=== PATIENT | female | born 1980 | race Caucasian/White ===

== ENCOUNTER 2019-12-07 19:49 | Emergency (ER) | payer OTHER, SELFPAY ==
--- NOTE | 2019-12-07 19:54 | ED.SKABFB ---
HPI - Skin/Abscess/Foreign Bdy General Chief complaint: Skin/Abscess/Foreign Body Stated complaint: Open Sores on face Time Seen by Provider: 12/07/19 19:53 Source: patient and RN notes reviewed Mode of arrival: ambulatory Limitations: no limitations History of Present Illness HPI narrative: 39-year-old female presents with concern for open sores. Reports history of MRSA infections. Reports she is an IV drug user and homeless. Reports complicated past medical history including history of sepsis, hepatitis C, hypertension, heart disease. Reports she is out of many of her medications including her albuterol. complaint: rash Related Data Home Medications Medication Instructions Recorded Confirmed clonidine 12/07/19 clonidine HCl 0.2 mg PO DAILY 12/07/19 12/07/19 omeprazole 20 mg PO DAILY 12/07/19 12/07/19 Allergies Allergy/AdvReac Type Severity Reaction Status Date / Time rifaximin Allergy Mild Unknown Verified 12/07/19 19:52 codeine Allergy Unknown Unknown Verified 12/07/19 19:52 metoclopramide Allergy Unknown Anaphylactic Verified 12/07/19 19:52 Shock Sulfa (Sulfonamide Allergy Unknown Unknown Verified 12/07/19 19:52 Antibiotics) sulfamethizole Allergy Unknown Unknown Verified 12/07/19 19:52 trimethoprim Allergy Unknown Unknown Verified 12/07/19 19:52 CODEINE PHOS Allergy Unknown hives Uncoded 12/07/19 19:52 ZIPRASIDONE HCL Allergy Unknown tongue Uncoded 12/07/19 19:52 swelling shortness of breath ZIPRASIDONE MESYLATE Allergy Unknown tongue Uncoded 12/07/19 19:52 swelling shortness of breath Review of Systems Review of Systems: Narrative: CONSTITUTIONAL: Denies malaise, chills, sweats, or fever ENT: Denies oral lesions CARDIOVASCULAR: Denies chest pain, palpitations, or edema. RESPIRATORY: Denies cough or dyspnea. SKIN: Reports generalized sores in various stages of healing on her abdomen, legs, arms, face All systems reviewed & are unremarkable except as noted in HPI and below PMFSH Family History Family History (Updated 06/17/15 @ 08:31 by DOCTOR UNKNOWN) Father Family history of kidney disease Family history of renal failure Mother Acute myocardial infarction Other Diabetes mellitus Family history of cardiovascular disease Hypertension Social History Social History Smoking status: Current every day smoker Alcohol intake: never Gender identity (if verbalized by the patient): Female Comments At time of signature, agree with nursing past medical, surgical, social and family history. There is no relevant family history pertinent to the presenting complaint Exam Narrative: Exam Narrative: GENERAL: Nontoxic-appearing, poor hygiene, and in no acute distress. HEAD: Normocephalic EYES: PERRLA, conjunctivae clear ENT: Mucous membranes moist. NECK: Supple. CHEST: No respiratory distress. Clear to auscultation. No bony deformities, no asymmetry. Speaks in full sentences. HEART: Regular rate and rhythm. No murmur heard. Normal peripheral pulses. ABDOMEN: normal active bowel sound SKIN: Warm, dry. Multiple scabs in various stages of healing noted to face, arms, torso. No fluctuation noted in any areas, no drainage visible NEURO: Alert and oriented x3. PSYCH: Normal mood and affect Course Course Emergency Course: Patient is aware of diagnosis, understands and agrees to treatment plan. Anticipatory guidance given. Patient agrees to follow-up as directed and is aware of reasons to seek care at the emergency department. Portions of this record may have been created with voice recognition software Vital Signs Vital signs: Reviewed. MDM - Skin/Abscess/Foreign Bdy MDM Narrative Medical decision making narrative: Does not appear at this time to be erythema multiforme, bullous, SJS, TEN; no evidence at this time to suggest RMSF, endocarditis or Lyme disease; patient looks well, nontoxic and is tolerating oral intake; no neurologic signs or s
[2019-12-07 19:56] VITALS: BP 179/109; PULSE 112; RESP 16; TEMP 36.7; O2SAT 100
--- NOTE | 2019-12-07 20:06 | PC.NURSE ---
Pt. presented to [facility] with C/O multiple sores in various stages of healing all about abdomen, face, arms and both legs. Patient admits to be an IV drug user and is homeless. All sores are in various stages of healing, no sign of open oozing any site.
== END 2019-12-07 20:12 | disposition home or self-care (01) ==
PROVIDERS: Emergency Provider Nurse Practitioner
DX: L02.03 Carbuncle of face (principal); L02.434 Carbuncle of left upper limb; L02.433 Carbuncle of right upper limb; L02.239 Carbuncle of trunk, unspecified; Z76.0 Encounter for issue of repeat prescription; F17.200 Nicotine dependence, unspecified, uncomplicated; Z86.19 Personal history of other infectious and parasitic diseases; Z86.14 Personal history of Methicillin resistant Staphylococcus aureus infection
CPT/HCPCS: 99213; G0463

== ENCOUNTER 2020-04-02 19:08 | Emergency (ER) | payer OTHER, SELFPAY ==
[2020-04-02 19:12] VITALS: BP 150/98; PULSE 95; RESP 16; TEMP 37.2; O2SAT 100
--- NOTE | 2020-04-02 19:24 | ED.FEMALEGU ---
HPI - Female Genitourinary General Chief complaint: Urogenital-Female Stated complaint: yeast infection Time Seen by Provider: 04/02/20 19:24 Source: patient and RN notes reviewed History of Present Illness HPI Narrative: Patient is a 39-year-old female who presents the urgent care with complaints of a yeast infection. Patient states that she is chronically on several antibiotics intermittently due to abscesses and lesions of the skin. Patient states that most recently she was on 3 different antibiotics back to back, finishing with clindamycin approximately 1 week ago. Patient states her symptoms have been occurring for several weeks. States that she is typically given Diflucan when put on antibiotics but she has not had it recently. Patient has chronic yeast infections and states that the symptoms are very similar . Patient is also requesting for antibiotic ointment for her face . Patient states that she is homeless and appears to be under the influence of illicit drugs. Patient denies of any pain with urination, frequency, urgency. Denies of any known fevers or abdominal pain. No other acute complaints. Patient aware of the plan of care. Related Data Allergies Allergy/AdvReac Type Severity Reaction Status Date / Time rifaximin Allergy Mild Unknown Verified 04/02/20 19:21 codeine Allergy Unknown Hives Verified 04/02/20 19:21 metoclopramide Allergy Unknown Anaphylactic Verified 04/02/20 19:21 Shock Sulfa (Sulfonamide Allergy Unknown Unknown Verified 04/02/20 19:21 Antibiotics) sulfamethizole Allergy Unknown Unknown Verified 04/02/20 19:21 trimethoprim Allergy Unknown Unknown Verified 04/02/20 19:21 CODEINE PHOS Allergy Unknown hives Uncoded 12/07/19 19:52 ZIPRASIDONE HCL Allergy Unknown tongue Uncoded 12/07/19 19:52 swelling shortness of breath ZIPRASIDONE MESYLATE Allergy Unknown tongue Uncoded 12/07/19 19:52 swelling shortness of breath Review of Systems Review of Systems: Narrative: CONSTITUTIONAL: Denies fever, chills, or sweats. EYES: Denies visual changes, redness, or discharge. ENT: Denies rhinorrhea, congestion, sore throat, or otalgia. CARDIOVASCULAR: Denies chest pain, palpitations, or edema. RESPIRATORY: Denies cough or dyspnea. GASTROINTESTINAL: Denies abdominal pain, nausea, vomiting, or diarrhea. GENITOURINARY: Reports of thick white cottage cheese vaginal discharge SKIN: Reports of facial sores MUSCULOSKELETAL: Denies back pain, joint pain, or myalgia. NEUROLOGIC: Denies headache, numbness, or weakness. All other systems reviewed are negative, except as documented in HPI. [facility] Family History Family History (Updated 06/17/15 @ 08:31 by DOCTOR UNKNOWN) Father Family history of kidney disease Family history of renal failure Mother Acute myocardial infarction Other Diabetes mellitus Family history of cardiovascular disease Hypertension Social History Social History Smoking status: Current every day smoker Alcohol intake: never Gender identity (if verbalized by the patient): Female Comments At the time of my signature, I reviewed and agree with the nursing past medical, surgical, social, and family history. There is no relevant family history pertinent to the patient complaint. Exam Narrative: Exam Narrative: GENERAL: This is a well-nourished, well-developed patient, in no apparent distress. HEAD: normocephalic, atraumatic. EYES: PERRL. Sclera clear/white. Vision is grossly intact. EARS: External ears normal NOSE: External nose normal with no obvious nasal discharge, nares without redness, no rhinorrhea. THROAT: Mucous membranes moist NECK: Neck supple SKIN: Multiple open lesions to the face, mostly surrounding the mouth : Patient refused vaginal exam NEURO: awake, alert, and oriented to person, place and time. There were no obvious focal neurologic abnormalities. EXTREMITIES: No clubbing, cyanosis, or edema Course Vital Signs Vital
== END 2020-04-02 19:40 | disposition home or self-care (01) ==
PROVIDERS: Emergency Provider Nurse Practitioner Family
DX: B37.3 Candidiasis of vulva and vagina (principal); L01.00 Impetigo, unspecified; I10 Essential (primary) hypertension; J44.9 Chronic obstructive pulmonary disease, unspecified; K21.9 Gastro-esophageal reflux disease without esophagitis; Z86.19 Personal history of other infectious and parasitic diseases; Z86.14 Personal history of Methicillin resistant Staphylococcus aureus infection
CPT/HCPCS: 99213; G0463

== ENCOUNTER 2020-04-26 16:28 | Emergency (ER) | payer OTHER, SELFPAY ==
--- NOTE | 2020-04-26 16:30 | ED.GENADULT ---
HPI - General Adult General Chief complaint: Dental/Oral Stated complaint: sores on face/neck/tooth abscess Time Seen by Provider: 04/26/20 16:49 Source: patient Mode of arrival: ambulatory Limitations: no limitations History of Present Illness HPI narrative: 39-year-old female patient presents to the [facility] with complaints of what she thinks might be a dental abscess to the right upper gum. Patient also complaining about a wound to the face on the right cheek. Patient states it is starting to get swelling today. Denies any fever, body aches or chills. Related Data Home Medications Medication Instructions Recorded Confirmed EpinephrineSnap-V 04/26/20 Allergies Allergy/AdvReac Type Severity Reaction Status Date / Time rifaximin Allergy Mild Unknown Verified 04/26/20 16:42 codeine Allergy Unknown Hives Verified 04/26/20 16:42 metoclopramide Allergy Unknown Anaphylactic Verified 04/26/20 16:42 Shock Sulfa (Sulfonamide Allergy Unknown Unknown Verified 04/26/20 16:42 Antibiotics) sulfamethizole Allergy Unknown Unknown Verified 04/26/20 16:42 trimethoprim Allergy Unknown Unknown Verified 04/26/20 16:42 CODEINE PHOS Allergy Unknown hives Uncoded 04/26/20 16:42 ZIPRASIDONE HCL Allergy Unknown tongue Uncoded 04/26/20 16:42 swelling shortness of breath ZIPRASIDONE MESYLATE Allergy Unknown tongue Uncoded 04/26/20 16:42 swelling shortness of breath Review of Systems Review of Systems: Narrative: CONSTITUTIONAL: Denies fever, chills, or sweats. EYES: Denies visual changes, redness, or discharge. ENT: Denies rhinorrhea, congestion, sore throat, or otalgia. Positive right upper dental pain CARDIOVASCULAR: Denies chest pain, palpitations, or edema. RESPIRATORY: Denies cough or dyspnea. GASTROINTESTINAL: Denies abdominal pain, nausea, vomiting, or diarrhea. GENITOURINARY: Denies dysuria or hematuria. SKIN: Denies rash or itching. Positive wound to right cheek MUSCULOSKELETAL: Denies back pain, joint pain, or myalgia. NEUROLOGIC: Denies headache, numbness, or weakness. PSYCHIATRIC: Denies anxiety or depression. [facility] Past Medical History Medical History (Updated 04/26/20 @ 17:30 by DANIELA Kohli) Anxiety Depression Diverticulitis GERD (gastroesophageal reflux disease) Goiter Hepatitis C Hypertension Hypothyroidism MRSA (methicillin resistant staph aureus) culture positive Rectal polyp Substance abuse LSD, cocaine, marijuana, heroin addict Surgical History Surgical History (Updated 04/26/20 @ 16:56 by DANIELA Kohli) History of hysterectomy Family History Family History Father Family history of kidney disease Family history of renal failure Mother Acute myocardial infarction Other Diabetes mellitus Family history of cardiovascular disease Hypertension Social History Social History Smoking status: Current every day smoker Alcohol intake: never Gender identity (if verbalized by the patient): Female Comments At the time of my signature I agree with nursing past medical history, surgical, social, and family history. There is no relevant family history pertinent to the presenting complaint. Exam Narrative: Exam Narrative: GENERAL: Well-appearing, well-nourished, and in no acute distress. HEAD: Normocephalic, atraumatic. EYES: PERRLA and EOMI. ENT: Nares clear, no rhinorrhea or epistaxis. Mucous membranes moist. No obvious abscesses or erythema or infected teeth noted on exam of the oral cavity. NECK: Supple. No lymphadenopathy CHEST: Clear to auscultation. No respiratory distress. HEART: Regular rate and rhythm. No murmur heard. Normal peripheral pulses. ABDOMEN: Soft, nontender, nondistended, normal active bowel sounds. EXTREMITIES: Normal range of motion. No edema. SKIN: Warm, dry, no rash. Patient does have an abscess not
[2020-04-26 16:37] VITALS: BP 160/107; PULSE 82; RESP 16; TEMP 36.8; O2SAT 100
--- NOTE | 2020-04-26 17:13 | PC.NURSE ---
1702 LET APPLIED TO RT. CHEEK PER SPAR FINISHER.
--- NOTE | 2020-04-26 17:31 | PC.NURSE ---
ATTEMPT TO DRAIN ABCESS ON FACE PER SURGICAL SUPERVISOR. WOUND CULTURE OBTAINED. ANTIBIOTIC OINTMENT AND BANDADE APPLIED PER. Atif ZHAO NP.
== END 2020-04-26 17:38 | disposition home or self-care (01) ==
PROVIDERS: Emergency Provider Nurse Practitioner Family
DX: L02.01 Cutaneous abscess of face (principal); F17.200 Nicotine dependence, unspecified, uncomplicated; K21.9 Gastro-esophageal reflux disease without esophagitis; Z86.19 Personal history of other infectious and parasitic diseases; I10 Essential (primary) hypertension; Z86.14 Personal history of Methicillin resistant Staphylococcus aureus infection; E03.9 Hypothyroidism, unspecified
CPT/HCPCS: 10060; 87070; 87075; 87076; 87147; 87186; 87205; 99213; G0463

== ENCOUNTER 2020-08-04 17:24 | Emergency (ER) | payer OTHER, SELFPAY ==
[2020-08-04 17:30] VITALS: BP 126/85; PULSE 95; RESP 16; TEMP 36.9; O2SAT 100
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
[2020-08-04 17:54] VITALS: BP 126/85; PULSE 95; RESP 16; TEMP 36.9; O2SAT 100
== END 2020-08-04 18:11 | disposition home or self-care (01) ==
PROVIDERS: Emergency Provider Nurse Practitioner; PCP Internal Medicine Gastroenterology
DX: T81.49XA Infection following a procedure, other surgical site, initial encounter (principal); L02.424 Furuncle of left upper limb; Z86.14 Personal history of Methicillin resistant Staphylococcus aureus infection; F17.200 Nicotine dependence, unspecified, uncomplicated; K21.9 Gastro-esophageal reflux disease without esophagitis; I10 Essential (primary) hypertension; E03.9 Hypothyroidism, unspecified
CPT/HCPCS: 99213; G0463

== ENCOUNTER 2021-06-19 11:21 | Emergency (ER) | payer OTHER, SELFPAY ==
[2021-06-19 11:27] VITALS: BP 154/88; PULSE 58; RESP 20; TEMP 36.5; O2SAT 100
--- NOTE | 2021-06-19 11:29 | ED.SKABFB ---
HPI - Skin/Abscess/Foreign Bdy General Chief complaint: Skin/Abscess/Foreign Body Stated complaint: Need to be retreated for Scabies Time Seen by Provider: 06/19/21 11:30 Source: patient and RN notes reviewed Mode of arrival: ambulatory Limitations: no limitations History of Present Illness HPI narrative: 40-year-old female who is in drug treatment and a home for heroin recovery request treatment for scabies. MD complaint: insect bite/sting Location: generalized Related Data Home Medications Medication Instructions Recorded Confirmed baclofen 10 mg PO BID 08/04/20 06/19/21 gabapentin [Neurontin] 900 mg PO TID 08/04/20 06/19/21 acyclovir 800 mg PO DAILY 06/19/21 06/19/21 albuterol sulfate 2 puff INHALATION Q4H PRN 06/19/21 06/19/21 buprenorphine-naloxone 1 film SUBLINGUAL BID 06/19/21 06/19/21 escitalopram oxalate 10 mg PO DAILY 06/19/21 06/19/21 glecaprevir-pibrentasvir [Mavyret] 1 tablet PO TID 06/19/21 06/19/21 metformin 1,000 mg PO BID 06/19/21 06/19/21 multivitamin 1 tablet PO DAILY 06/19/21 06/19/21 spironolactone 100 mg PO BID 06/19/21 06/19/21 Allergies Allergy/AdvReac Type Severity Reaction Status Date / Time rifaximin Allergy Mild Unknown Verified 06/19/21 11:42 codeine Allergy Unknown Hives Verified 06/19/21 11:42 metoclopramide Allergy Unknown Anaphylactic Verified 06/19/21 11:42 Shock Sulfa (Sulfonamide Allergy Unknown Unknown Verified 06/19/21 11:42 Antibiotics) CODEINE PHOS Allergy Unknown hives Uncoded 06/19/21 11:42 ZIPRASIDONE HCL Allergy Unknown tongue Uncoded 06/19/21 11:42 swelling shortness of breath Review of Systems Review of Systems: All systems reviewed & are unremarkable except as noted in HPI and below Constitutional: Constitutional: Reports no additional constitutional complaints, Denies chills and Denies fever(s) Eyes: Eyes: Reports no additional eye complaints ENT: Reports system reviewed and no additional complaints, except as documented Cardiovascular: Cardiovascular: Reports no additional cardiovascular complaints Respiratory: Respiratory: Reports no additional respiratory complaints Gastrointestinal: Gastrointestinal: Reports no additional gastrointestinal complaints Musculoskeletal: Musculoskeletal: Reports no additional musculoskeletal complaints Integumentary/Breasts: Skin/Breast: Reports as per HPI and Reports rash Neurologic: Reports system reviewed and no additional complaints, except as documented Psychiatric: Psychiatric: Reports no additional psychiatric complaints Allergic/Immunologic: Allergic/Immunologic: Reports no additional allergic/immunologic complaints PMFSH Past Medical History Medical History (Updated 06/19/21 @ 11:57 by Oly Vilchis) Anxiety Depression Diverticulitis GERD (gastroesophageal reflux disease) Goiter Hepatitis C Hypertension Hypothyroidism MRSA (methicillin resistant staph aureus) culture positive Rectal polyp Substance abuse LSD, cocaine, marijuana, heroin addict Surgical History Surgical History History of hysterectomy Family History Family History Father Family history of kidney disease Family history of renal failure Mother Acute myocardial infarction Other Diabetes mellitus Family history of cardiovascular disease Hypertension Social History Social History (Updated 06/19/21 @ 20:28 by Oly Vilchis) Smoking status: Current every day smoker Alcohol intake: never Substance use: former Substance use type: former substance user, heroin and painkillers Other substance usage details: Heroin fentanyl Last use: April 05 Living arrangements: detention Additional living arrangements comments: Drug recovery home Gender identity (if verbalized by the patient): Female Comments At the time of my signature, I reviewed and agree with the nursing past medical, surgical, soci
== END 2021-06-19 12:05 | disposition home or self-care (01) ==
PROVIDERS: Emergency Provider Nurse Practitioner
DX: B86 Scabies (principal); L50.9 Urticaria, unspecified; F17.200 Nicotine dependence, unspecified, uncomplicated; K21.9 Gastro-esophageal reflux disease without esophagitis; I10 Essential (primary) hypertension; E03.9 Hypothyroidism, unspecified; Z86.14 Personal history of Methicillin resistant Staphylococcus aureus infection; Z86.19 Personal history of other infectious and parasitic diseases; E04.9 Nontoxic goiter, unspecified
CPT/HCPCS: 99213; G0463

== ENCOUNTER 2021-08-15 16:44 | Emergency (ER) | payer OTHER, SELFPAY ==
[2021-08-15 17:05] VITALS: BP 126/86; PULSE 84; RESP 20; TEMP 36.7; O2SAT 98
--- NOTE | 2021-08-15 17:20 | ED.SKABFB ---
HPI - Skin/Abscess/Foreign Bdy General Chief complaint: Skin/Abscess/Foreign Body Stated complaint: skin lesion Time Seen by Provider: 08/15/21 17:30 Source: patient and RN notes reviewed Mode of arrival: ambulatory Limitations: no limitations History of Present Illness HPI narrative: Thi is a 40-year-old female patient who ambulated into the [facility] with complaint of skin itching, possible scabies. States she has been treated at least twice for permethrin, doxycycline, and clindamycin. Patient states she cannot quit scratching at her skin. Patient also states she has chronic lupus that causes skin problems. She has large sores over both arms and on her face. MD complaint: rash Related Data Home Medications Medication Instructions Recorded Confirmed baclofen 10 mg PO BID 08/04/20 08/15/21 gabapentin [Neurontin] 900 mg PO TID 08/04/20 08/15/21 acyclovir 800 mg PO DAILY 06/19/21 08/15/21 albuterol sulfate 2 puff INHALATION Q4H PRN 06/19/21 08/15/21 buprenorphine-naloxone 1 film SUBLINGUAL BID 06/19/21 08/15/21 glecaprevir-pibrentasvir [Mavyret] 1 tablet PO TID 06/19/21 08/15/21 metformin 1,000 mg PO BID 06/19/21 08/15/21 multivitamin 1 tablet PO DAILY 06/19/21 08/15/21 spironolactone 100 mg PO BID 06/19/21 08/15/21 bupropion HCl [Wellbutrin XL] 150 mg PO QAM 08/15/21 08/15/21 dextroamphetamine-amphetamine 20 mg PO DAILY 08/15/21 08/15/21 [Adderall] Allergies Allergy/AdvReac Type Severity Reaction Status Date / Time rifaximin Allergy Mild Unknown Verified 08/15/21 16:59 codeine Allergy Unknown Hives Verified 08/15/21 16:59 metoclopramide Allergy Unknown Anaphylactic Verified 08/15/21 16:59 Shock Sulfa (Sulfonamide Allergy Unknown Unknown Verified 08/15/21 16:59 Antibiotics) CODEINE PHOS Allergy Unknown hives Uncoded 06/19/21 11:42 ZIPRASIDONE HCL Allergy Unknown tongue Uncoded 06/19/21 11:42 swelling shortness of breath Review of Systems Review of Systems: CONSTITUTIONAL: Denies body aches, fever, chills, or sweats. EYES: Denies visual changes, redness, or discharge. ENT: Denies rhinorrhea, congestion, sore throat, or otalgia. CARDIOVASCULAR: Denies chest pain, palpitations, or edema. RESPIRATORY: Denies cough or dyspnea. GASTROINTESTINAL: Denies abdominal pain, nausea, vomiting, or diarrhea. GENITOURINARY: Denies dysuria or hematuria. SKIN: + rash on chest, skin sores on face and arms MUSCULOSKELETAL: Denies back pain, joint pain, or myalgia. NEUROLOGIC: Denies headache, numbness, tingling, or weakness. PSYCH: Denies depression or anxiety. All systems reviewed & are unremarkable except as noted in HPI and below PMFSH Past Medical History Medical History Anxiety Depression Diverticulitis GERD (gastroesophageal reflux disease) Goiter Hepatitis C Hypertension Hypothyroidism MRSA (methicillin resistant staph aureus) culture positive Rectal polyp Substance abuse LSD, cocaine, marijuana, heroin addict Surgical History Surgical History History of hysterectomy Family History Family History Father Family history of kidney disease Family history of renal failure Mother Acute myocardial infarction Other Diabetes mellitus Family history of cardiovascular disease Hypertension Social History Social History Smoking status: Current every day smoker Alcohol intake: never Substance use: former Substance use type: former substance user, heroin and painkillers Other substance usage details: Heroin fentanyl Last use: April 05 Additional living arrangements comments: Drug recovery home Gender identity (if verbalized by the patient): Female Comments At time of signature, I have reviewed and agree with nursing past medical, surgical, social a
[2021-08-15 17:23] VITALS: BP 126/86; PULSE 84; RESP 20; TEMP 36.7; O2SAT 98
== END 2021-08-15 17:35 | disposition home or self-care (01) ==
PROVIDERS: Emergency Provider Nurse Practitioner Family
DX: L03.211 Cellulitis of face (principal); F17.200 Nicotine dependence, unspecified, uncomplicated; K21.9 Gastro-esophageal reflux disease without esophagitis; I10 Essential (primary) hypertension; E03.9 Hypothyroidism, unspecified; Z86.14 Personal history of Methicillin resistant Staphylococcus aureus infection; E04.9 Nontoxic goiter, unspecified; F41.9 Anxiety disorder, unspecified; F32.A Depression, unspecified
CPT/HCPCS: 99213; G0463

== ENCOUNTER 2021-10-27 12:48 | Emergency (ER) | payer OTHER, SELFPAY ==
[2021-10-27 13:14] VITALS: BP 129/89; PULSE 81; RESP 16; TEMP 37.3; O2SAT 99
--- NOTE | 2021-10-27 13:24 | ED.URI ---
HPI - URI/Sore Throat General Chief Complaint: Upper Respiratory Infection Stated Complaint: Sore throat/Bodyaches/chills Time Seen by Provider: 10/27/21 13:24 History of Present Illness HPI Narrative: PATIENT PRESENTS WITH SORE THROAT , BODY ACHES, CHILLS. NO TROUBLE SWALLOWING NO DROOLING NO SHORTNESS OF BREATH AND NO CHEST PAIN. GOOD PO INTAKE. NORMALLY HEALTHY INDIVIDUAL. NOT TAKING ANYTHING OVER THE COUNTER FOR SYMPTOMS. REPORT 4 DAY HISTORY OF SYMPTOMS. Related Data Home Medications Medication Instructions Recorded Confirmed baclofen 10 mg PO BID 08/04/20 10/27/21 gabapentin [Neurontin] 900 mg PO TID 08/04/20 10/27/21 acyclovir 800 mg PO DAILY 06/19/21 10/27/21 albuterol sulfate 2 puff INHALATION Q4H PRN 06/19/21 10/27/21 buprenorphine-naloxone 1 film SUBLINGUAL BID 06/19/21 10/27/21 glecaprevir-pibrentasvir [Mavyret] 1 tablet PO TID 06/19/21 10/27/21 metformin 1,000 mg PO BID 06/19/21 10/27/21 multivitamin 1 tablet PO DAILY 06/19/21 10/27/21 spironolactone 100 mg PO BID 06/19/21 10/27/21 bupropion HCl [Wellbutrin XL] 150 mg PO QAM 08/15/21 10/27/21 dextroamphetamine-amphetamine 20 mg PO DAILY 08/15/21 10/27/21 [Adderall] clonidine HCl 10/27/21 dextroamphetamine-amphetamine 10/27/21 loratadine mg 10/27/21 Allergies Allergy/AdvReac Type Severity Reaction Status Date / Time rifaximin Allergy Mild Unknown Verified 10/27/21 13:48 codeine Allergy Unknown Hives Verified 10/27/21 13:48 metoclopramide Allergy Unknown Anaphylactic Verified 10/27/21 13:48 Shock Sulfa (Sulfonamide Allergy Unknown Unknown Verified 10/27/21 13:48 Antibiotics) CODEINE PHOS Allergy Unknown hives Uncoded 10/27/21 13:48 ZIPRASIDONE HCL Allergy Unknown tongue Uncoded 10/27/21 13:48 swelling shortness of breath Review of Systems Review of Systems: CONSTITUTIONAL: Denies chills, or sweats. Reports fever and generalized body aches EYES: Denies visual changes, redness, or discharge. ENT: Denies otalgia. Reports nasal congestion runny nose and sore throat CARDIOVASCULAR: Denies chest pain, palpitations, or edema. RESPIRATORY: Denies dyspnea. Reports occasional cough GASTROINTESTINAL: Denies abdominal pain, nausea, vomiting, or diarrhea. GENITOURINARY: Denies dysuria or hematuria. SKIN: Denies rash or itching. MUSCULOSKELETAL: Denies back pain, joint pain, or myalgia. Reports generalized body aches NEUROLOGIC: Denies headache, numbness, or weakness. PSYCHIATRIC: Denies anxiety or depression. [facility] Past Medical History Medical History Anxiety Depression Diverticulitis GERD (gastroesophageal reflux disease) Goiter Hepatitis C Hypertension Hypothyroidism MRSA (methicillin resistant staph aureus) culture positive Rectal polyp Substance abuse LSD, cocaine, marijuana, heroin addict Surgical History Surgical History History of hysterectomy Family History Family History Father Family history of kidney disease Family history of renal failure Mother Acute myocardial infarction Other Diabetes mellitus Family history of cardiovascular disease Hypertension Social History Social History Smoking status: Current every day smoker Alcohol intake: never Substance use: former Substance use type: former substance user, heroin and painkillers Other substance usage details: Heroin fentanyl Last use: April 05 Additional living arrangements comments: Drug recovery home Gender identity (if verbalized by the patient): Female Comments At time of signature, agree with nursing past medical, surgical, social and family history. There is no relevant family history pertinent to the presenting complaint Exam Narrative: The patient is a well-developed, well-nourished in no acu
== END 2021-10-27 14:35 | disposition home or self-care (01) ==
PROVIDERS: Emergency Provider Nurse Practitioner Family; PCP Internal Medicine
DX: J06.9 Acute upper respiratory infection, unspecified (principal); B34.9 Viral infection, unspecified; Z20.822 Contact with and (suspected) exposure to COVID-19; F17.200 Nicotine dependence, unspecified, uncomplicated; K21.9 Gastro-esophageal reflux disease without esophagitis; I10 Essential (primary) hypertension; E03.9 Hypothyroidism, unspecified; Z86.16 Personal history of COVID-19; E04.9 Nontoxic goiter, unspecified; F32.A Depression, unspecified
CPT/HCPCS: 87081; 87426; 87804; 87880; 99213; C9803; G0463

== ENCOUNTER 2021-11-15 16:29 | Emergency (ER) | payer OTHER, SELFPAY ==
[2021-11-15 16:34] VITALS: BP 144/109; PULSE 104; RESP 18; TEMP 36.6; O2SAT 99
--- NOTE | 2021-11-15 16:39 | ED.URI ---
HPI - URI/Sore Throat General Chief Complaint: Upper Respiratory Infection Stated Complaint: sob fever sore throat headache Time Seen by Provider: 11/15/21 16:45 Source: patient Mode of arrival: ambulatory Limitations: no limitations History of Present Illness HPI Narrative: 41-year-old female presented for complaint of headache, body aches, sinus pressure/congestion, cough, fever/chills. Onset 3 days. Denies shortness of breath, wheezing, chest pain. Also endorses to sick contacts within her home have tested positive for Covid. She is not boosted for Covid. MD elicited complaint: cough Related Data Home Medications Medication Instructions Recorded Confirmed baclofen 10 mg PO BID 08/04/20 10/27/21 gabapentin [Neurontin] 900 mg PO TID 08/04/20 10/27/21 acyclovir 800 mg PO DAILY 06/19/21 10/27/21 albuterol sulfate 2 puff INHALATION Q4H PRN 06/19/21 10/27/21 buprenorphine-naloxone 1 film SUBLINGUAL BID 06/19/21 10/27/21 glecaprevir-pibrentasvir [Mavyret] 1 tablet PO TID 06/19/21 10/27/21 metformin 1,000 mg PO BID 06/19/21 10/27/21 multivitamin 1 tablet PO DAILY 06/19/21 10/27/21 spironolactone 100 mg PO BID 06/19/21 10/27/21 bupropion HCl [Wellbutrin XL] 150 mg PO QAM 08/15/21 10/27/21 dextroamphetamine-amphetamine 20 mg PO DAILY 08/15/21 10/27/21 [Adderall] clonidine HCl 10/27/21 Allergies Allergy/AdvReac Type Severity Reaction Status Date / Time rifaximin Allergy Mild THROAT Verified 11/15/21 16:41 SWELLS codeine Allergy Unknown Hives Verified 11/15/21 16:41 metoclopramide Allergy Unknown Anaphylactic Verified 11/15/21 16:41 Shock Sulfa (Sulfonamide Allergy Unknown Rash Verified 11/15/21 16:41 Antibiotics) CODEINE PHOS Allergy Unknown hives Uncoded 10/27/21 13:48 ZIPRASIDONE HCL Allergy Unknown tongue Uncoded 10/27/21 13:48 swelling shortness of breath Review of Systems Review of Systems: CONSTITUTIONAL: Endorses malaise, chills, sweats, fever. EYES: Denies visual changes, redness, or discharge. ENT: Reports rhinorrhea, congestion, sinus pain, otalgia and sore throat. CARDIOVASCULAR: Denies chest pain, palpitations, or edema. RESPIRATORY: Reports cough, post nasal drainage. Denies dyspnea. GASTROINTESTINAL: Denies abdominal pain, nausea, vomiting, diarrhea SKIN: Denies rash or itching. MUSCULOSKELETAL: Endorses myalgia. NEUROLOGIC: Denies headache. [facility] Past Medical History Medical History Anxiety Depression Diverticulitis GERD (gastroesophageal reflux disease) Goiter Hepatitis C Hypertension Hypothyroidism MRSA (methicillin resistant staph aureus) culture positive Rectal polyp Substance abuse LSD, cocaine, marijuana, heroin addict Surgical History Surgical History History of hysterectomy Family History Family History Father Family history of kidney disease Family history of renal failure Mother Acute myocardial infarction Other Diabetes mellitus Family history of cardiovascular disease Hypertension Social History Social History Smoking status: Current every day smoker Alcohol intake: never Substance use: former Substance use type: former substance user, heroin and painkillers Other substance usage details: Heroin fentanyl Last use: April 05 Additional living arrangements comments: Drug recovery home Gender identity (if verbalized by the patient): Female Exam Narrative: GENERAL: Ill-appearing, nontoxic no acute distress. HEAD: Normocephalic EYES: PERRLA, conjunctivae clear ENT: Mucous membranes moist. TM pearly beaulieu with dull light reflex bilaterally; no tragal tenderness. Oropharynx erythematous without lesions and without exudate, no drooling, no hoarseness, no trismus, uvula midline. NECK: Supple. No
[2021-11-15 16:44] VITALS: BP 144/109; PULSE 104; RESP 18; TEMP 36.6; O2SAT 99
== END 2021-11-15 17:22 | disposition home or self-care (01) ==
PROVIDERS: Emergency Provider Nurse Practitioner Family; PCP Internal Medicine
DX: J06.9 Acute upper respiratory infection, unspecified (principal); Z20.822 Contact with and (suspected) exposure to COVID-19; F17.200 Nicotine dependence, unspecified, uncomplicated; K21.9 Gastro-esophageal reflux disease without esophagitis; I10 Essential (primary) hypertension; E03.9 Hypothyroidism, unspecified; Z86.14 Personal history of Methicillin resistant Staphylococcus aureus infection; F41.9 Anxiety disorder, unspecified; F32.A Depression, unspecified
CPT/HCPCS: 87426; 99213; C9803; G0463

== ENCOUNTER 2022-07-17 10:17 | Emergency (ER) | payer OTHER, SELFPAY ==
--- NOTE | 2022-07-17 10:20 | ED.DENTAL ---
HPI - Dental/Oral General Chief complaint: Dental/Oral Stated complaint: Gums throbing Time Seen by Provider: 07/17/22 10:21 Source: patient and RN notes reviewed History of Present Illness HPI Narrative: Patient is a 41-year-old female who presents the urgent care with complaints of lower gum pain. Patient believes that her gums are infected after getting 6 teeth pulled on Monday. Patient states that she had an infection prior to the removal and they never placed her on antibiotic. Patient states she did have 4 doses of 875 amoxicillin left over and has been taking it every 12 hours for the last 2 days. Patient denies any nausea or vomiting. Denies of any known fever. No other acute complaints. No acute distress noted. Patient aware of the plan of care. Some parts of this dictation were generated by voice recognition software and may contain typographical and/or grammatical inaccuracies. Related Data Home Medications Medication Instructions Recorded Confirmed baclofen 10 mg tablet 10 mg PO BID 08/04/20 07/17/22 gabapentin 300 mg capsule 900 mg PO TID 08/04/20 07/17/22 (Neurontin) acyclovir 800 mg tablet 800 mg PO DAILY 06/19/21 07/17/22 albuterol sulfate 90 mcg/actuation 2 puff inhalation Q4H PRN 06/19/21 07/17/22 aerosol inhaler Shortness Of Breath Or Wheezing buprenorphine 8 mg-naloxone 2 mg 1 film sublingual BID 06/19/21 07/17/22 sublingual film glecaprevir 100 mg-pibrentasvir 40 1 tablet PO TID 06/19/21 07/17/22 mg tablet (Mavyret) metformin 1,000 mg tablet 1,000 mg PO BID 06/19/21 07/17/22 multivitamin 1 tablet PO DAILY 06/19/21 07/17/22 spironolactone 100 mg tablet 100 mg PO BID 06/19/21 07/17/22 bupropion HCl 150 mg 24 hr tablet, 150 mg PO QAM 08/15/21 07/17/22 extended release (Wellbutrin XL) dextroamphetamine-amphetamine 20 20 mg PO DAILY 08/15/21 07/17/22 mg tablet (Adderall) clonidine HCl 0.1 mg tablet 0.1 mg PO DAILY 10/27/21 07/17/22 Allergies Allergy/AdvReac Type Severity Reaction Status Date / Time rifaximin Allergy Mild THROAT Verified 07/17/22 10:36 SWELLS codeine Allergy Unknown Hives Verified 07/17/22 10:36 metoclopramide Allergy Unknown Anaphylactic Verified 07/17/22 10:36 Shock Sulfa (Sulfonamide Allergy Unknown Rash Verified 07/17/22 10:36 Antibiotics) CODEINE PHOS Allergy Unknown hives Uncoded 07/17/22 10:36 ZIPRASIDONE HCL Allergy Unknown tongue Uncoded 07/17/22 10:36 swelling shortness of breath Review of Systems Review of Systems: CONSTITUTIONAL: Denies fever, chills, or sweats. EYES: Denies visual changes, redness, or discharge. ENT: Denies rhinorrhea, congestion, sore throat, or otalgia. Reports of lower gum pain and swelling CARDIOVASCULAR: Denies chest pain, palpitations, or edema. RESPIRATORY: Denies cough or dyspnea. GASTROINTESTINAL: Denies abdominal pain, nausea, vomiting, or diarrhea. GENITOURINARY: Denies dysuria or hematuria. SKIN: Denies rash or itching. MUSCULOSKELETAL: Denies back pain, joint pain, or myalgia. NEUROLOGIC: Denies headache, numbness, or weakness. All other systems reviewed are negative, except as documented in HPI. [facility] Past Medical History Medical History Anxiety Depression Diverticulitis GERD (gastroesophageal reflux disease) Goiter Hepatitis C Hypertension Hypothyroidism MRSA (methicillin resistant staph aureus) culture positive Rectal polyp Substance abuse LSD, cocaine, marijuana, heroin addict Surgical History Surgical History History of hysterectomy Family History Family History Father Family history of kidney disease Family history of renal failure Mother Acute myocardial infarction Other Diabetes mellitus Family history of cardiovascular disease Hypertension Social History Social History (Reviewed 11/15/21
[2022-07-17 10:25] VITALS: BP 117/87; PULSE 88; RESP 18; TEMP 36.7; O2SAT 100
== END 2022-07-17 10:45 | disposition home or self-care (01) ==
PROVIDERS: Emergency Provider Nurse Practitioner Family; PCP Internal Medicine
DX: T81.40XA Infection following a procedure, unspecified, initial encounter (principal); K04.7 Periapical abscess without sinus; K05.10 Chronic gingivitis, plaque induced; F17.200 Nicotine dependence, unspecified, uncomplicated; K21.9 Gastro-esophageal reflux disease without esophagitis; I10 Essential (primary) hypertension; E03.9 Hypothyroidism, unspecified; Z86.14 Personal history of Methicillin resistant Staphylococcus aureus infection; F41.9 Anxiety disorder, unspecified; F32.A Depression, unspecified
CPT/HCPCS: 99213; G0463

== ENCOUNTER 2022-11-29 09:10 | Emergency (ER) | payer OTHER, SELFPAY ==
--- NOTE | 2022-11-29 09:13 | ED.GENADULT ---
HPI - General Adult General Chief complaint: Upper Respiratory Infection Stated complaint: Nausea/Vomiting/Sore Throat Source: patient and RN notes reviewed History of Present Illness HPI narrative: [age] year female presents to urgent care with complaints sore throat x1 week. Patient is also reporting intermittent headache, bilateral ear pain, nausea, and vomiting x2 yesterday. Denies any diarrhea, abdominal pain, vomiting today or dysuria. Patient also reports chest pain with deep breathing and coughing. Patient has been taking ibuprofen with moderate relief. Some parts of this dictation were generated by voice recognition software and may contain typographical and/or grammatical inaccuracies. Related Data Home Medications Medication Instructions Recorded Confirmed baclofen 10 mg tablet 10 mg PO BID 08/04/20 07/17/22 gabapentin 300 mg capsule 900 mg PO TID 08/04/20 07/17/22 (Neurontin) acyclovir 800 mg tablet 800 mg PO DAILY 06/19/21 07/17/22 albuterol sulfate 90 mcg/actuation 2 puff inhalation Q4H PRN 06/19/21 07/17/22 aerosol inhaler Shortness Of Breath Or Wheezing buprenorphine 8 mg-naloxone 2 mg 1 film sublingual BID 06/19/21 07/17/22 sublingual film glecaprevir 100 mg-pibrentasvir 40 1 tablet PO TID 06/19/21 07/17/22 mg tablet (Mavyret) metformin 1,000 mg tablet 1,000 mg PO BID 06/19/21 07/17/22 multivitamin 1 tablet PO DAILY 06/19/21 07/17/22 spironolactone 100 mg tablet 100 mg PO BID 06/19/21 07/17/22 bupropion HCl 150 mg 24 hr tablet, 150 mg PO QAM 08/15/21 07/17/22 extended release (Wellbutrin XL) dextroamphetamine-amphetamine 20 20 mg PO DAILY 08/15/21 07/17/22 mg tablet (Adderall) clonidine HCl 0.1 mg tablet 0.1 mg PO DAILY 10/27/21 07/17/22 dulaglutide 0.75 mg/0.5 mL mg subcut 11/29/22 subcutaneous pen injector (Trulicity) hydrochlorothiazide 25 mg tablet mg 11/29/22 topiramate 100 mg tablet mg 11/29/22 Allergies Allergy/AdvReac Type Severity Reaction Status Date / Time rifaximin Allergy Mild THROAT Verified 07/17/22 10:36 SWELLS codeine Allergy Unknown Hives Verified 07/17/22 10:36 metoclopramide Allergy Unknown Anaphylactic Verified 07/17/22 10:36 Shock Sulfa (Sulfonamide Allergy Unknown Rash Verified 07/17/22 10:36 Antibiotics) CODEINE PHOS Allergy Unknown hives Uncoded 07/17/22 10:36 ZIPRASIDONE HCL Allergy Unknown tongue Uncoded 07/17/22 10:36 swelling shortness of breath Review of Systems Review of Systems: CONSTITUTIONAL: Denies fever, chills, or sweats. EYES: Denies visual changes, redness, or discharge. ENT: Reports otalgia and sore throat CARDIOVASCULAR: Reports chest pain with coughing and deep breathing. RESPIRATORY: Denies cough or dyspnea. GASTROINTESTINAL: Reports vomiting x2 yesterday. GENITOURINARY: Denies dysuria or hematuria. SKIN: Denies rash or itching. MUSCULOSKELETAL: Denies back pain, joint pain, or myalgia. NEUROLOGIC: Reports headache. [facility] Past Medical History Medical History Anxiety Depression Diverticulitis GERD (gastroesophageal reflux disease) Goiter Hepatitis C Hypertension Hypothyroidism MRSA (methicillin resistant staph aureus) culture positive Rectal polyp Substance abuse LSD, cocaine, marijuana, heroin addict Surgical History Surgical History History of hysterectomy Family History Family History Father Family history of kidney disease Family history of renal failure Mother Acute myocardial infarction Other Diabetes mellitus Family history of cardiovascular disease Hypertension Social History Social History Smoking status: Current every day smoker Alcohol intake: never Substance use: former Substance use type: former substance user, heroi
[2022-11-29 09:18] VITALS: BP 118/87; PULSE 97; RESP 16; TEMP 36.8; O2SAT 100
== END 2022-11-29 09:50 | disposition home or self-care (01) ==
PROVIDERS: Emergency Provider Nurse Practitioner Family; PCP Internal Medicine
DX: B34.9 Viral infection, unspecified (principal); M94.0 Chondrocostal junction syndrome [Tietze]; J02.9 Acute pharyngitis, unspecified; F17.200 Nicotine dependence, unspecified, uncomplicated; E04.9 Nontoxic goiter, unspecified; K21.9 Gastro-esophageal reflux disease without esophagitis; I10 Essential (primary) hypertension; E03.9 Hypothyroidism, unspecified; F41.9 Anxiety disorder, unspecified; F32.A Depression, unspecified; Z86.14 Personal history of Methicillin resistant Staphylococcus aureus infection; Z86.19 Personal history of other infectious and parasitic diseases
CPT/HCPCS: 87081; 87880; 99213; G0463

== ENCOUNTER 2023-02-27 16:42 | Emergency (ER) | payer OTHER, SELFPAY ==
[2023-02-27 16:44] VITALS: BP 142/106; PULSE 76; RESP 18; TEMP 36.9; O2SAT 100
[2023-02-27 16:59] VITALS: BP 142/106; PULSE 76; RESP 18; TEMP 36.9; O2SAT 100
--- NOTE | 2023-02-27 17:06 | ED.URI ---
HPI - URI/Sore Throat General Chief Complaint: Upper Respiratory Infection Stated Complaint: head and chest congestion Source: patient and RN notes reviewed History of Present Illness HPI Narrative: 42-year-old male presents to urgent care with complaints of worsening congestion and cough. Patient states her symptoms started approximately last Monday and got worse last Monday. Patient was seen her primary care physician's office and diagnosed with an upper respiratory infection where she was prescribed Sudafed and Tylenol. Patient states she has had no relief and continues to get worse. Patient states her cough is productive and continues to blow out green snot. Patient states she believes she has been running fevers. Patient ear pain, sore throat, abdominal pain, shortness of breath, or chest pain. Some parts of this dictation were generated by voice recognition software and may contain typographical and/or grammatical inaccuracies. Related Data Home Medications Medication Instructions Recorded Confirmed baclofen 10 mg tablet 10 mg PO BID 08/04/20 07/17/22 gabapentin 300 mg capsule 900 mg PO TID 08/04/20 07/17/22 (Neurontin) acyclovir 800 mg tablet 800 mg PO DAILY 06/19/21 07/17/22 albuterol sulfate 90 mcg/actuation 2 puff inhalation Q4H PRN 06/19/21 07/17/22 aerosol inhaler Shortness Of Breath Or Wheezing buprenorphine 8 mg-naloxone 2 mg 1 film sublingual BID 06/19/21 07/17/22 sublingual film glecaprevir 100 mg-pibrentasvir 40 1 tablet PO TID 06/19/21 07/17/22 mg tablet (Mavyret) metformin 1,000 mg tablet 1,000 mg PO BID 06/19/21 07/17/22 multivitamin 1 tablet PO DAILY 06/19/21 07/17/22 spironolactone 100 mg tablet 100 mg PO BID 06/19/21 07/17/22 bupropion HCl 150 mg 24 hr tablet, 150 mg PO QAM 08/15/21 07/17/22 extended release (Wellbutrin XL) dextroamphetamine-amphetamine 20 20 mg PO DAILY 08/15/21 07/17/22 mg tablet (Adderall) clonidine HCl 0.1 mg tablet 0.1 mg PO DAILY 10/27/21 07/17/22 dulaglutide 0.75 mg/0.5 mL mg subcut 11/29/22 [facility] hydrochlorothiazide 25 mg tablet mg 11/29/22 topiramate 100 mg tablet mg 11/29/22 Allergies Allergy/AdvReac Type Severity Reaction Status Date / Time rifaximin Allergy Mild THROAT Verified 02/27/23 16:58 SWELLS codeine Allergy Unknown Hives Verified 02/27/23 16:58 metoclopramide Allergy Unknown Anaphylactic Verified 02/27/23 16:58 Shock Sulfa (Sulfonamide Allergy Unknown Rash Verified 02/27/23 16:58 Antibiotics) CODEINE PHOS Allergy Unknown hives Uncoded 07/17/22 10:36 ZIPRASIDONE HCL Allergy Unknown tongue Uncoded 07/17/22 10:36 swelling shortness of breath Review of Systems Review of Systems: Pertinent positives and pertinent negatives per HPI. [facility] Past Medical History Medical History Anxiety Depression Diverticulitis GERD (gastroesophageal reflux disease) Goiter Hepatitis C Hypertension Hypothyroidism MRSA (methicillin resistant staph aureus) culture positive Rectal polyp Substance abuse LSD, cocaine, marijuana, heroin addict Surgical History Surgical History History of hysterectomy Family History Family History Father Family history of kidney disease Family history of renal failure Mother Acute myocardial infarction Other Diabetes mellitus Family history of cardiovascular disease Hypertension Social History Social History Smoking status: Current every day smoker Alcohol intake: never Substance use: former Substance use type: former substance user, heroin and painkillers Other substance usage details: Heroin fentanyl Last use: April 05 Living arrangements: care home Additional living arrangements comments: [facility]
== END 2023-02-27 17:17 | disposition home or self-care (01) ==
PROVIDERS: Emergency Provider Nurse Practitioner Family; PCP Internal Medicine
DX: J32.9 Chronic sinusitis, unspecified (principal); F17.200 Nicotine dependence, unspecified, uncomplicated; K21.9 Gastro-esophageal reflux disease without esophagitis; E04.9 Nontoxic goiter, unspecified; I10 Essential (primary) hypertension; E03.9 Hypothyroidism, unspecified; F41.9 Anxiety disorder, unspecified; F32.A Depression, unspecified; Z86.14 Personal history of Methicillin resistant Staphylococcus aureus infection
CPT/HCPCS: 99213; G0463

== ENCOUNTER 2023-04-06 11:56 | Emergency (ER) | payer OTHER, SELFPAY ==
[2023-04-06 11:58] VITALS: BP 139/96; PULSE 87; RESP 14; TEMP 36.6; O2SAT 100
--- NOTE | 2023-04-06 12:11 | ED.DENTAL ---
HPI - Dental/Oral General Chief complaint: Dental/Oral Stated complaint: infection in mouth History of Present Illness HPI Narrative: Pt is a y/o female, presents to with request for abx for dental infection. She has recurrent dental abscesses and she is scheduled for completion dental extraction in preparation for dentures on 04/11/2023. She denies fevers or facial edema. she is taking APAP and Motrin for discomfort. She notes she woke this morning and the gingiva around the remaining decayed teeth were swollen and tender. She has no additional associated symptoms. Related Data Home Medications Medication Instructions Recorded Confirmed baclofen 10 mg tablet 10 mg PO BID 08/04/20 07/17/22 gabapentin 300 mg capsule 900 mg PO TID 08/04/20 07/17/22 (Neurontin) acyclovir 800 mg tablet 800 mg PO DAILY 06/19/21 07/17/22 albuterol sulfate 90 mcg/actuation 2 puff inhalation Q4H PRN 06/19/21 07/17/22 aerosol inhaler Shortness Of Breath Or Wheezing buprenorphine 8 mg-naloxone 2 mg 1 film sublingual BID 06/19/21 07/17/22 sublingual film glecaprevir 100 mg-pibrentasvir 40 1 tablet PO TID 06/19/21 07/17/22 mg tablet (Mavyret) metformin 1,000 mg tablet 1,000 mg PO BID 06/19/21 07/17/22 multivitamin 1 tablet PO DAILY 06/19/21 07/17/22 spironolactone 100 mg tablet 100 mg PO BID 06/19/21 07/17/22 bupropion HCl 150 mg 24 hr tablet, 150 mg PO QAM 08/15/21 07/17/22 extended release (Wellbutrin XL) dextroamphetamine-amphetamine 20 20 mg PO DAILY 08/15/21 07/17/22 mg tablet (Adderall) clonidine HCl 0.1 mg tablet 0.1 mg PO DAILY 10/27/21 07/17/22 dulaglutide 0.75 mg/0.5 mL mg subcut 11/29/22 subcutaneous pen injector (Trulicity) hydrochlorothiazide 25 mg tablet mg 11/29/22 topiramate 100 mg tablet mg 11/29/22 Allergies Allergy/AdvReac Type Severity Reaction Status Date / Time rifaximin Allergy Mild THROAT Verified 02/27/23 16:58 SWELLS codeine Allergy Unknown Hives Verified 02/27/23 16:58 metoclopramide Allergy Unknown Anaphylactic Verified 02/27/23 16:58 Shock Sulfa (Sulfonamide Allergy Unknown Rash Verified 02/27/23 16:58 Antibiotics) CODEINE PHOS Allergy Unknown hives Uncoded 07/17/22 10:36 ZIPRASIDONE HCL Allergy Unknown tongue Uncoded 07/17/22 10:36 swelling shortness of breath Review of Systems Constitutional: Comments: no fevers ENT: Comments: refer to [facility] Past Medical History Medical History Anxiety Depression Diverticulitis GERD (gastroesophageal reflux disease) Goiter Hepatitis C Hypertension Hypothyroidism MRSA (methicillin resistant staph aureus) culture positive Rectal polyp Substance abuse LSD, cocaine, marijuana, heroin addict Surgical History Surgical History History of hysterectomy Family History Family History Father Family history of kidney disease Family history of renal failure Mother Acute myocardial infarction Other Diabetes mellitus Family history of cardiovascular disease Hypertension Social History Social History Smoking status: Current every day smoker Alcohol intake: never Substance use: former Substance use type: former substance user, heroin and painkillers Other substance usage details: Heroin fentanyl Last use: April 05 Living arrangements: custodial Additional living arrangements comments: Drug recovery home Gender identity (if verbalized by the patient): Female Exam Const: General: healthy appearing, no acute distress and alert Nutritional Appearance: well nourished Orientation/consciousness: patient oriented x3 Limitations: no limitations HENMT: Head: normal to inspection Ears: external ears normal Face/Nose/Sinus: Normal external nose present Face an
== END 2023-04-06 12:38 | disposition home or self-care (01) ==
PROVIDERS: Emergency Provider Nurse Practitioner Family; PCP Internal Medicine
DX: K05.10 Chronic gingivitis, plaque induced (principal); K02.9 Dental caries, unspecified; F17.200 Nicotine dependence, unspecified, uncomplicated; K21.9 Gastro-esophageal reflux disease without esophagitis; I10 Essential (primary) hypertension; E03.9 Hypothyroidism, unspecified; Z86.14 Personal history of Methicillin resistant Staphylococcus aureus infection; F41.9 Anxiety disorder, unspecified; F32.A Depression, unspecified; Z86.19 Personal history of other infectious and parasitic diseases
CPT/HCPCS: 99213; G0463

== ENCOUNTER 2023-05-24 11:56 | Emergency (ER) | payer OTHER, SELFPAY ==
--- NOTE | ~2023-05-24 | XR_ITS ---
EXAMINATION: XR mandible min 4V DATE: 05/24/2023 12:31 INDICATION: Right jaw pain. TECHNIQUE: 4 views of the mandible were obtained. COMPARISON: None. FINDINGS: Bone alignment is normal. No fracture. The patient is edentulous. The temporomandibular elba nts are normal. There are changes of posterior fusion procedures in cervical and thoracic spine. IMPRESSION: 1. No etiology for the patient's symptoms. Reviewed, dictated and finalized at location A.
[2023-05-24 12:01] VITALS: BP 131/98; PULSE 65; RESP 18; TEMP 36.6; O2SAT 100
--- NOTE | 2023-05-24 12:10 | ED.DENTAL ---
HPI - Dental/Oral General Chief complaint: Skin/Abscess/Foreign Body Stated complaint: Mouth Sore Time Seen by Provider: 05/24/23 12:06 Mode of arrival: ambulatory Limitations: no limitations History of Present Illness HPI Narrative: 42-year-old female presents concern for sore area in her mouth. She reports she had all of her teeth removed at the end of March. She reports she has had problems since then, she has had several rounds of antibiotics. She continues to have the spot on the of front bottom part of her mouth that is painful and swollen. She reports it is not completely resolve with these rounds of antibiotics. She reports she had the [facility] has not been contacted by them for follow-up yet. MD Complaint: tooth pain Related Data Home Medications Medication Instructions Recorded Confirmed acyclovir 800 mg tablet 800 mg PO DAILY 06/19/21 05/24/23 albuterol sulfate 90 mcg/actuation 2 puff inhalation Q4H PRN 06/19/21 05/24/23 aerosol inhaler Shortness Of Breath Or Wheezing multivitamin 1 tablet PO DAILY 06/19/21 05/24/23 spironolactone 100 mg tablet 100 mg PO BID 06/19/21 05/24/23 clonidine HCl 0.1 mg tablet 0.1 mg PO DAILY 10/27/21 05/24/23 hydrochlorothiazide 25 mg tablet 25 mg PO DAILY 11/29/22 05/24/23 topiramate 100 mg tablet 100 mg PO DAILY 11/29/22 05/24/23 atomoxetine 40 mg capsule 40 mg PO DAILY 05/24/23 05/24/23 (Strattera) buprenorphine 100 mg/0.5 mL 100 mg subcut MONTHLY 05/24/23 05/24/23 solution,exten.rel.subcutaneous syringe (Sublocade) bupropion HCl 300 mg 24 hr tablet, 300 mg PO DAILY 05/24/23 05/24/23 extended release bupropion HCl 75 mg tablet 75 mg PO DAILY 05/24/23 05/24/23 dulaglutide 1.5 mg/0.5 mL 1.5 mg subcut WEEKLY 05/24/23 05/24/23 subcutaneous pen injector (Trulicity) fluticasone propionate 115 1 inh inhalation DAILY 05/24/23 05/24/23 mcg-salmeterol 21 mcg/actuation HFA inhaler (Advair HFA) ibuprofen 800 mg tablet 800 mg PO TID PRN Pain (Scale 05/24/23 05/24/23 Score 4-6) omeprazole 20 mg capsule,delayed 20 mg PO BID 05/24/23 05/24/23 release pregabalin 75 mg capsule 75 mg PO BID 05/24/23 05/24/23 pseudoephedrine HCl 30 mg tablet 30 mg PO QID 05/24/23 05/24/23 (Sudogest) Allergies Allergy/AdvReac Type Severity Reaction Status Date / Time rifaximin Allergy Mild THROAT Verified 05/24/23 12:12 SWELLS codeine Allergy Unknown Hives Verified 05/24/23 12:12 metoclopramide Allergy Unknown Anaphylactic Verified 05/24/23 12:12 Shock Sulfa (Sulfonamide Allergy Unknown Rash Verified 05/24/23 12:12 Antibiotics) Review of Systems Review of Systems: CONSTITUTIONAL: Denies malaise, chills, sweats, or fever. EYES: Denies visual changes ENT: Denies rhinorrhea, congestion, sinus pain, otalgia or sore throat. Reports pain and swelling at the dental extraction site CARDIOVASCULAR: Denies chest pain, palpitations RESPIRATORY: Denies cough or dyspnea. SKIN: Denies rash or itching. MUSCULOSKELETAL: Denies myalgia. NEUROLOGIC: Denies numbness, weakness, or headache. All systems reviewed & are unremarkable except as noted in HPI and below PMFSH Past Medical History Medical History Anxiety Depression Diverticulitis GERD (gastroesophageal reflux disease) Goiter Hepatitis C Hypertension Hypothyroidism MRSA (methicillin resistant staph aureus) culture positive Rectal polyp Substance abuse LSD, cocaine, marijuana, heroin addict Surgical History Surgical History History of hysterectomy Family History Family History Father Family history of kidney disease Family history of renal failure Mother Acute myocardial infarction Other Diabetes mellitus Family history of cardiovascular disease Hypertension Social History Social History (Rev
== END 2023-05-24 12:49 | disposition home or self-care (01) ==
PROVIDERS: Emergency Provider Nurse Practitioner; PCP Internal Medicine
DX: K04.7 Periapical abscess without sinus (principal); F17.200 Nicotine dependence, unspecified, uncomplicated; F41.9 Anxiety disorder, unspecified; F32.A Depression, unspecified; K21.9 Gastro-esophageal reflux disease without esophagitis; E04.9 Nontoxic goiter, unspecified; I10 Essential (primary) hypertension; E03.9 Hypothyroidism, unspecified; Z86.14 Personal history of Methicillin resistant Staphylococcus aureus infection
CPT/HCPCS: 70110; 99213; G0463

== ENCOUNTER 2023-08-03 14:13 | Emergency (ER) | payer OTHER, SELFPAY ==
[2023-08-03 14:17] VITALS: BP 124/90; PULSE 85; RESP 18; TEMP 35.8; O2SAT 100
--- NOTE | 2023-08-03 14:40 | ED.GENADULT ---
HPI - General Adult General Chief complaint: Skin/Abscess/Foreign Body Stated complaint: Skin Sore Time Seen by Provider: 08/03/23 14:40 Source: patient, RN notes reviewed and old records reviewed Mode of arrival: ambulatory Limitations: no limitations History of Present Illness HPI narrative: 42 year old female who presents to express care to circular lesion to right lateral chest wall mid way down which has red edges with center having yellowish whitish center. Patient reports that she has had this lesion for about a month and has been washing area with dial soap daily, has used antibacterial ointment and also some fungal ointment to area with no improvement, denies any pain to site.Patient reports no fevers .chills or sweats. Patient reports that she has history of having MRSA in the past. MD complaint: abscess right lateral chest wall Onset (ago): month(s) (1) Location: chest (right lateral chest area) Severity: moderate Treatments prior to arrival: other (cleansed with dial soap daily, antibacterial ointment and fungal ointment) Related Data Home Medications Medication Instructions Recorded Confirmed acyclovir 800 mg tablet 800 mg PO DAILY 06/19/21 08/03/23 multivitamin 1 tablet PO DAILY 06/19/21 08/03/23 spironolactone 100 mg tablet 100 mg PO BID 06/19/21 08/03/23 clonidine HCl 0.1 mg tablet 0.1 mg PO DAILY 10/27/21 08/03/23 hydrochlorothiazide 25 mg tablet 25 mg PO DAILY 11/29/22 08/03/23 topiramate 100 mg tablet 100 mg PO DAILY 11/29/22 08/03/23 bupropion HCl 300 mg 24 hr tablet, 300 mg PO DAILY 05/24/23 08/03/23 extended release bupropion HCl 75 mg tablet 75 mg PO DAILY 05/24/23 08/03/23 ibuprofen 800 mg tablet 800 mg PO TID PRN Pain (Scale 05/24/23 08/03/23 Score 4-6) omeprazole 20 mg capsule,delayed 20 mg PO BID 05/24/23 08/03/23 release baclofen 20 mg tablet 20 mg PO DAILY 08/03/23 08/03/23 Allergies Allergy/AdvReac Type Severity Reaction Status Date / Time rifaximin Allergy Mild THROAT Verified 05/24/23 12:12 SWELLS codeine Allergy Unknown Hives Verified 05/24/23 12:12 metoclopramide Allergy Unknown Anaphylactic Verified 05/24/23 12:12 Shock Sulfa (Sulfonamide Allergy Unknown Rash Verified 05/24/23 12:12 Antibiotics) Review of Systems Review of Systems: CONSTITUTIONAL: Denies fever, chills, or sweats. CARDIOVASCULAR: Denies chest pain, palpitations, or edema. RESPIRATORY: Denies cough or dyspnea. GASTROINTESTINAL: Denies abdominal pain, nausea, vomiting SKIN: Reports redness and purulent drainage, of lesion to right lateral chest wall area, lesion circular with red edges with center whitish yellow in color denies any pain to area. MUSCULOSKELETAL: Denies myalgia. NEUROLOGIC: Denies headache, numbness All systems reviewed & are unremarkable except as noted in HPI and below PMFSH Past Medical History Medical History (Updated 08/06/23 @ 08:08 by Mariaelena Ambriz NP) Anxiety Depression Diverticulitis GERD (gastroesophageal reflux disease) Goiter Hepatitis C Hypertension Hypothyroidism MRSA (methicillin resistant staph aureus) culture positive Rectal polyp Substance abuse LSD, cocaine, marijuana, heroin addict Surgical History Surgical History (Updated 08/06/23 @ 08:08 by Mariaelena Ambriz NP) H/O cervical spine surgery H/O lumbosacral spine surgery History of hysterectomy Family History Family History Father Family history of kidney disease Family history of renal failure Mother Acute myocardial infarction Other Diabetes mellitus Family history of cardiovascular disease Hypertension Social History Social History Smoking status: Current every day smoker Alcohol intake: never Substance use: former Substance use type: former substance user, heroin and painkillers Other substance usage details: Heroin fentanyl Last use: April 05 Melanie
== END 2023-08-03 15:06 | disposition home or self-care (01) ==
PROVIDERS: Emergency Provider Registered Nurse; PCP Internal Medicine
DX: L02.213 Cutaneous abscess of chest wall (principal); F17.200 Nicotine dependence, unspecified, uncomplicated; K21.9 Gastro-esophageal reflux disease without esophagitis; I10 Essential (primary) hypertension; E03.9 Hypothyroidism, unspecified; Z86.14 Personal history of Methicillin resistant Staphylococcus aureus infection; F41.9 Anxiety disorder, unspecified; F32.A Depression, unspecified
CPT/HCPCS: 99213; G0463

== ENCOUNTER 2023-11-12 15:32 | Emergency (ER) | payer OTHER, SELFPAY ==
[2023-11-12 15:50] VITALS: BP 109/72; PULSE 85; RESP 20; TEMP 36.6; O2SAT 100
--- NOTE | 2023-11-12 17:37 | ED.GENADULT ---
HPI - General Adult General Chief complaint: Upper Respiratory Infection Stated complaint: throat/congestion/skin Source: patient Mode of arrival: ambulatory Limitations: no limitations History of Present Illness HPI narrative: Patient presents for evaluation and treatment of two concerns. The first is skin lesions to her back and face. She has a history of methamphetamine use and admits to picking at her skin. She has a history of MRSA and an underlying allergy to Bactrim. She has plans to enter treatment for drug dependency. She is working with [employer] on this process. She also reports sinus symptoms for the past two weeks. She reports sinus congestion and thick green drainage from her nares. No fever, chills, nausea, vomiting, cough or SOB. Related Data Allergies Allergy/AdvReac Type Severity Reaction Status Date / Time rifaximin Allergy Mild THROAT Verified 11/12/23 15:44 SWELLS codeine Allergy Unknown Hives Verified 11/12/23 15:44 metoclopramide Allergy Unknown Anaphylactic Verified 11/12/23 15:44 Shock Sulfa (Sulfonamide Allergy Unknown Rash Verified 11/12/23 15:44 Antibiotics) Review of Systems Review of Systems: CONSTITUTIONAL: Denies fever, chills, or sweats. EYES: Denies visual changes, redness, or discharge. ENT: Reports sinus congestion and thick yellow/green discharge from her nares. CARDIOVASCULAR: Denies chest pain, palpitations, or edema. RESPIRATORY: Denies cough or dyspnea. GASTROINTESTINAL: Denies abdominal pain, nausea, vomiting, or diarrhea. GENITOURINARY: Denies dysuria or hematuria. SKIN: Reports skin lesions to the face and back. MUSCULOSKELETAL: Denies back pain, joint pain, or myalgia. NEUROLOGIC: Denies headache, numbness, dizziness, or weakness. PSYCHIATRIC: Denies anxiety or depression. [facility] Past Medical History Medical History Anxiety Depression Diverticulitis GERD (gastroesophageal reflux disease) Goiter Hepatitis C Hypertension Hypothyroidism MRSA (methicillin resistant staph aureus) culture positive Rectal polyp Substance abuse LSD, cocaine, marijuana, heroin addict Surgical History Surgical History H/O cervical spine surgery H/O lumbosacral spine surgery History of hysterectomy Family History Family History Father Family history of kidney disease Family history of renal failure Mother Acute myocardial infarction Other Diabetes mellitus Family history of cardiovascular disease Hypertension Social History Social History Smoking status: Current every day smoker Alcohol intake: never Substance use: current Substance use type: heroin, amphetamines, opiates, painkillers and methamphetamine Other substance usage details: Heroin fentanyl Last use: April 05 Living arrangements: long-term Gender identity (if verbalized by the patient): Female Exam Narrative: GENERAL: Well-appearing, well-nourished, and in no acute distress. HEAD: Normocephalic, atraumatic. EYES: PERRLA and EOMI. ENT: Nares clear, no rhinorrhea or epistaxis. Mucous membranes moist. Oropharynx without tonsillar hypertrophy exudate or other lesions. Bilateral TMs pearly beaulieu nonbulging NECK: Supple. No adenopathy or masses. No carotid bruits or JVD CHEST: Clear to auscultation. No respiratory distress. No wheezes rales or rhonchi HEART: Regular rate and rhythm. No murmur heard. Normal peripheral pulses. ABDOMEN: Soft, nontender, nondistended, normal active bowel sounds. EXTREMITIES: Normal range of motion. No edema. SKIN: There are several scabbed lesions to the face and back. There are no drainable fluid collections that I appreciate on my exam. NEURO: No focal deficits. Alert and oriented x3. PSYCH: Normal mood an
== END 2023-11-12 17:05 | disposition home or self-care (01) ==
PROVIDERS: Emergency Provider Nurse Practitioner; PCP Internal Medicine
DX: L98.9 Disorder of the skin and subcutaneous tissue, unspecified (principal); Z86.14 Personal history of Methicillin resistant Staphylococcus aureus infection; J01.90 Acute sinusitis, unspecified; Z20.822 Contact with and (suspected) exposure to COVID-19; F17.200 Nicotine dependence, unspecified, uncomplicated; K21.9 Gastro-esophageal reflux disease without esophagitis; I10 Essential (primary) hypertension; E03.9 Hypothyroidism, unspecified
CPT/HCPCS: 87426; 87804; 99213; G0463

== ENCOUNTER 2024-01-29 09:42 | Emergency (ER) | payer OTHER, SELFPAY ==
[2024-01-29 09:48] VITALS: BP 131/90; PULSE 92; RESP 20; TEMP 36.8; O2SAT 100
[2024-01-29 09:54] VITALS: BP 131/90; PULSE 92; RESP 20; TEMP 36.8; O2SAT 100
--- NOTE | 2024-01-29 10:21 | ED.EAR ---
HPI - Ear Problem General Chief complaint: Ear Stated complaint: Ear pain Time Seen by Provider: 01/29/24 10:16 Source: patient and RN notes reviewed Mode of arrival: ambulatory Limitations: no limitations History of Present Illness HPI Narrative: Patient presents today complaining of pain to her right ear since last night. Two days ago she had flushed her ear of wax. She also reports decreased hearing. Denies blood from the ear. Patient is also complaining of redness and pain around scabbed areas to the nose, cheek, and chin. States these areas came about when she was shaving her face and likely due to some drug use recently. She has been clean and back on Methadone x3 weeks. Related Data Home Medications Medication Instructions Recorded Confirmed clonidine HCl 0.1 mg tablet mg 01/29/24 methadone 01/29/24 spironolactone 100 mg tablet mg 01/29/24 topiramate 100 mg tablet mg 01/29/24 Allergies Allergy/AdvReac Type Severity Reaction Status Date / Time rifaximin Allergy Mild THROAT Verified 11/12/23 15:44 SWELLS codeine Allergy Unknown Hives Verified 11/12/23 15:44 metoclopramide Allergy Unknown Anaphylactic Verified 11/12/23 15:44 Shock Sulfa (Sulfonamide Allergy Unknown Rash Verified 11/12/23 15:44 Antibiotics) Review of Systems Review of Systems: CONSTITUTIONAL: Denies body aches, fever, chills, or sweats. EYES: Denies visual changes, redness, or discharge. ENT: Denies rhinorrhea, congestion, sore throat. + right ear pain, decreased hearing CARDIOVASCULAR: Denies chest pain, palpitations, or edema. RESPIRATORY: Denies cough or dyspnea. GASTROINTESTINAL: Denies abdominal pain, nausea, vomiting, or diarrhea. GENITOURINARY: Denies dysuria or hematuria. SKIN: Denies rash, itching. + pain and wounds to right face MUSCULOSKELETAL: Denies back pain, joint pain, or myalgia. NEUROLOGIC: Denies headache, numbness, tingling, or weakness. PSYCH: Denies depression or anxiety. [facility] Past Medical History Medical History Anxiety Depression Diverticulitis GERD (gastroesophageal reflux disease) Goiter Hepatitis C Hypertension Hypothyroidism MRSA (methicillin resistant staph aureus) culture positive Rectal polyp Substance abuse LSD, cocaine, marijuana, heroin addict Surgical History Surgical History H/O cervical spine surgery H/O lumbosacral spine surgery History of hysterectomy Family History Family History Father Family history of kidney disease Family history of renal failure Mother Acute myocardial infarction Other Diabetes mellitus Family history of cardiovascular disease Hypertension Social History Social History Smoking status: Current every day smoker Alcohol intake: never Substance use: current Substance use type: heroin, amphetamines, opiates, painkillers and methamphetamine Other substance usage details: Heroin fentanyl Last use: April 05 Living arrangements: snf Gender identity (if verbalized by the patient): Female Comments At time of signature, I have reviewed and agree with nursing past medical, surgical, social and family history unless otherwise noted. Please see nursing chart for further information. There is no relevant family history pertinent to the presenting complaint Exam Narrative: GENERAL: Well-appearing, well-nourished, and in no acute distress. HEAD: Normocephalic, atraumatic. EYES: EOMI. No redness or drainage. Conjunctivae normal. ENT: Mucous membranes pink and moist. TMs normal bilaterally. Right ear canal mildly erythematous with tragal tenderness. No drainage. No movement tenderness. Left ear normal. NECK: Normal AROM. Supple. No lymphadenopathy. CHEST: No respiratory d
== END 2024-01-29 10:35 | disposition home or self-care (01) ==
PROVIDERS: Emergency Provider Nurse Practitioner; PCP Internal Medicine
DX: H66.91 Otitis media, unspecified, right ear (principal); L73.9 Follicular disorder, unspecified; F17.200 Nicotine dependence, unspecified, uncomplicated; K21.9 Gastro-esophageal reflux disease without esophagitis; E04.9 Nontoxic goiter, unspecified; I10 Essential (primary) hypertension; E03.9 Hypothyroidism, unspecified; Z86.14 Personal history of Methicillin resistant Staphylococcus aureus infection
CPT/HCPCS: 99213; G0463

== ENCOUNTER 2024-04-09 10:50 | Emergency (ER) | payer OTHER, SELFPAY ==
[2024-04-09 10:56] VITALS: BP 121/81; PULSE 73; RESP 16; TEMP 36.6; O2SAT 100
--- NOTE | 2024-04-09 11:12 | ED.URI ---
HPI - URI/Sore Throat General Chief Complaint: Upper Respiratory Infection Stated Complaint: throat/cough/fever/aches Time Seen by Provider: 04/09/24 11:10 Source: patient, RN notes reviewed and old records reviewed Mode of arrival: ambulatory Limitations: no limitations History of Present Illness HPI Narrative: 43 year old female accompanied by daughter reports complaints of sore throat, sinus congestion and drainage, and cough, body aches and fever highest 100.1F for the past 4 days. Patient reports that she has been taking Tylenol ,Ibuprofen and also some Mucinex for her symptoms. MD elicited complaint: fever, sore throat, rhinorrhea, nasal congestion and other (body aches) Onset (ago): day(s) (4) Pain scale (0-10): 4 Able to tolerate fluids by mouth: Yes Treatments prior to arrival: acetaminophen, ibuprofen and other (Mucinex) Related Data Home Medications Medication Instructions Recorded Confirmed spironolactone 100 mg tablet 100 mg PO DAILY 01/29/24 04/09/24 topiramate 100 mg tablet 100 mg PO DAILY 01/29/24 04/09/24 albuterol sulfate 90 mcg/actuation inhalation 04/09/24 aerosol inhaler buprenorphine HCl 2 mg sublingual 2 mg sublingual DAILY 04/09/24 04/09/24 tablet dextroamphetamine-amphetamine ER 20 mg PO DAILY 04/09/24 04/09/24 20 mg 24hr capsule,extend release dulaglutide 1.5 mg/0.5 mL 1.5 mg subcut DIRECTED 04/09/24 04/09/24 subcutaneous pen injector (Trulicity) pregabalin 75 mg capsule 75 mg PO DAILY 04/09/24 04/09/24 Allergies Allergy/AdvReac Type Severity Reaction Status Date / Time rifaximin Allergy Mild THROAT Verified 04/09/24 11:17 SWELLS codeine Allergy Unknown Hives Verified 04/09/24 11:17 metoclopramide Allergy Unknown Anaphylactic Verified 04/09/24 11:17 Shock Sulfa (Sulfonamide Allergy Unknown Rash Verified 04/09/24 11:17 Antibiotics) Review of Systems Review of Systems: CONSTITUTIONAL: Reports malaise, chills, sweats, or fever. EYES: Denies visual changes, redness, or discharge. ENT: Reports rhinorrhea, congestion, sinus pain, no otalgia and positive sore throat. CARDIOVASCULAR: Denies chest pain, palpitations, or edema. RESPIRATORY: Reports cough.? Denies dyspnea. GASTROINTESTINAL: Denies abdominal pain, nausea, vomiting, diarrhea SKIN: Denies rash or itching. MUSCULOSKELETAL: Reports myalgia. NEUROLOGIC: Denies headache. All systems reviewed & are unremarkable except as noted in HPI and below PMFSH Past Medical History Medical History Anxiety Depression Diverticulitis GERD (gastroesophageal reflux disease) Goiter Hepatitis C Hypertension Hypothyroidism MRSA (methicillin resistant staph aureus) culture positive Rectal polyp Substance abuse LSD, cocaine, marijuana, heroin addict Surgical History Surgical History H/O cervical spine surgery H/O lumbosacral spine surgery History of hysterectomy Family History Family History Father Family history of kidney disease Family history of renal failure Mother Acute myocardial infarction Other Diabetes mellitus Family history of cardiovascular disease Hypertension Social History Social History (Updated 04/10/24 @ 07:46 by Mariaelena Ambriz NP) Smoking status: Current every day smoker Alcohol intake: never Substance use: former Substance use type: heroin, amphetamines, opiates, painkillers and methamphetamine Other substance usage details: Heroin fentanyl Last use: december 2023 relapsed back on suboxone Living arrangements: residential Gender identity (if verbalized by the patient): Female Comments At time of signature, agree with nursing past medical, surgical, social and family history. There is no relevant family history pertinent to the presenting complaint Exam Narrative:
== END 2024-04-09 12:07 | disposition home or self-care (01) ==
PROVIDERS: Emergency Provider Registered Nurse; PCP Internal Medicine
DX: R05.9 Cough, unspecified (principal); J02.9 Acute pharyngitis, unspecified; F17.200 Nicotine dependence, unspecified, uncomplicated; K21.9 Gastro-esophageal reflux disease without esophagitis; I10 Essential (primary) hypertension; E03.9 Hypothyroidism, unspecified; Z86.14 Personal history of Methicillin resistant Staphylococcus aureus infection
CPT/HCPCS: 87081; 87880; 99213; G0463